=== PATIENT | female | born 1960 | race Caucasian/White ===

== ENCOUNTER → 2018-01-24 16:52 | Outpatient (CLI) | payer OTHER, SELFPAY ==
[2018-01-24 18:23] LABS: Amphetamine Urine VISTA NEGATIVE (<1000 ng/mL); Barbiturate Urine VISTA NEGATIVE (< 200 ng/mL); Benzodiazepine Urine VISTA NEGATIVE (< 200 ng/mL); Cocaine Urine VISTA NEGATIVE (< 300 ng/mL); Ecstacy Urine VISTA NEGATIVE (< 500 ng/mL); Methadone Urine VISTA NEGATIVE (< 300 ng/mL); PCP Urine VISTA NEGATIVE (< 25 ng/mL); THC Urine VISTA NEGATIVE (< 50 ng/mL); Vista UDS pH Range 6
== END ==
PROVIDERS: Family Provider Family Medicine; PCP Family Medicine; Visit Provider Anesthesiology Pain Medicine
DX: F11.20 Opioid dependence, uncomplicated (principal)
CPT/HCPCS: 80307

== ENCOUNTER → 2018-02-01 12:44 | Outpatient (CLI) | payer OTHER, SELFPAY ==
--- NOTE | 2018-02-01 13:45 | MRI_ITS ---
STUDY: MRI LUMBAR SPINE WITHOUT CONTRAST REASON FOR EXAM: Female, 57 years old. Low back pain and right hip pain TECHNIQUE: Standardized fat and water weighted pulse sequences were obtained in the sagittal and axial planes. COMPARISON: None FINDINGS: T12-L1: Normal endplates. Narrowed disc space with desiccation of the disc and moderate annular bulge with left posterolateral disc protrusion.. Normal bilateral facet joints. Normal central canal. Mild right lateral recess stenosis and moderate stenosis on the left. Normal bilateral intervertebral neural foramina. Normal lumbar lordosis. There is no substantial scoliosis. Normal conus medullaris that terminates at L1 L1-2: Normal endplates. Normal disc height, hydration and morphology. Normal bilateral facet joints. Normal central canal and bilateral lateral recesses. Normal bilateral intervertebral neural foramina. L2-3: Normal endplates. Normal disc height, desiccation and mild bulging of the annulus with small left posterolateral/foraminal disc protrusion.. Normal bilateral facet joints. Normal central canal. Mild right lateral recess stenosis and moderate left lateral recess and neuroforaminal stenosis. L3-4: Normal endplates. Normal disc height, desiccation and small right posterolateral/foraminal disc protrusion.. Mild facet arthropathy more pronounced on the right.. Normal central canal. Moderate right lateral recess and neuroforaminal stenosis.. L4-5: Normal endplates. Normal disc height, hydration and minor annular bulge. Bilateral facet arthropathy.. Normal central canal. Moderate bilateral recess and neural foraminal stenosis exaggerated by shortened pedicles. L5-S1: Grade 1 spondylolisthesis Normal endplates. Normal disc height, desiccation and minor pseudobulging of the annulus.. Bilateral facet arthropathy.. Normal central canal. Mild bilateral recess encroachment. Normal bilateral intervertebral neural foramina. Normal visualized sacral ala. Normal visualized paraspinous soft tissue structures. MRI/Spine Lumbar (Routine) IMPRESSION: No evidence for acute fracture or subluxation. Moderate spondylosis and multilevel spinal stenosis secondary to disc disease and bony hypertrophy with findings as above Electronically Signed: Manolo Sevilla MD at 23:49 EDT , Service support ,
== END ==
PROVIDERS: Family Provider Family Medicine; PCP Family Medicine; Visit Provider Anesthesiology Pain Medicine
DX: M54.9 Dorsalgia, unspecified (principal); M79.606 Pain in leg, unspecified
CPT/HCPCS: 72148

== ENCOUNTER → 2018-04-26 13:33 | Outpatient (CLI) | payer OTHER, SELFPAY ==
--- NOTE | 2018-04-26 13:35 | RAD_ITS ---
STUDY: X-RAY - PELVIS AND RIGHT HIP REASON FOR EXAM: Right hip pain for years, no specific injury. TECHNIQUE: Radiological exam, hip, unilateral, with pelvis when performed; 2 or 3 views. COMPARISON: None. FINDINGS: There is a small phlebolith in the right hemipelvis. Normal bilateral iliac wings, sacroiliac joints and visualized sacrum. Normal bilateral superior and inferior pubic rami. Normal pubic symphysis. There is a small enthesophyte at the left ischial tuberosity. There is a small enthesophyte at the left greater trochanter. Normal visualized femoral head. There is a right os acetabula. Normal hip joint. RAD/Hip 2-3 Views with Pelvis IMPRESSION: Right os acetabula. Small enthesophytes at the left ischial tuberosity and left greater trochanter. Otherwise, unremarkable x-ray examination of the pelvis and right hip. Electronically Signed: Mike Briones MD at 15:25 EDT Tel , Service support ,
== END ==
PROVIDERS: Family Provider Family Medicine; PCP Family Medicine; Visit Provider Anesthesiology Pain Medicine
DX: M54.9 Dorsalgia, unspecified (principal); M25.559 Pain in unspecified hip
CPT/HCPCS: 73502